=== PATIENT | female | born 1975 | race Caucasian/White ===

== ENCOUNTER 2023-08-05 17:11 | Emergency (ER) | payer OTHER ==
[~2023-08-05] VITALS: Ht 167.6 cm; Wt 87.5 kg
[2023-08-05] VITALS (10 sets, daily range): BP systolic 129–170; BP diastolic 82–101
[2023-08-05] MEDS ORDERED: CLINDAMYCIN HY150 MG PO (19:18)
== END 2023-08-06 11:35 | disposition home or self-care (01) | DRG 581 ==
LOC: ED 17:11
PROC: 0JCJ0ZZ Extirpation of Matter from Right Hand Subcutaneous Tissue and Fascia, Open Approach (ICD-10-PCS; principal; 2023-08-05)
DX: S60.452A Superficial foreign body of right middle finger, initial encounter (principal); I10 Essential (primary) hypertension; W45.8XXA Other foreign body or object entering through skin, initial encounter; Y93.89 Activity, other specified